=== PATIENT | female | born 1950 | race Caucasian/White ===

== ENCOUNTER 2018-02-08 01:59 | Emergency (ER) | payer MEDICARE, BC ==
[~2018-02-08] VITALS: Ht 165.1 cm; Wt 86.2 kg
[~2018-02-08 01:59] MED LIST: DICL100G16 TP; ESCI10TA PO; ESZO3TAB27 PO; LANS15CA13 PO; PRED20TA PO; PRED5SOL PO; THYR60TA2 PO; THYR90TA PO
--- NOTE | 2018-02-08 02:19 | NUR ---
MD WALKER AT BEDSIDE FOR MSE
--- NOTE | 2018-02-08 02:45 | NUR ---
Patient discharged to home in stable conditon. Written and verbal after care instructions given. Patient verbalizes understanding of instructions. Patient able to ambulate unassisted with a steady gait. Patient left with all personal belongings.
[2018-02-08 02:49] VITALS: BP 142/88
== END 2018-02-08 02:45 | disposition home or self-care (01) ==
LOC: ER 02:10
DX: J32.9 Chronic sinusitis, unspecified (principal); M54.2 Cervicalgia; M54.6 Pain in thoracic spine; K21.9 Gastro-esophageal reflux disease without esophagitis; Z88.0 Allergy status to penicillin; Z88.2 Allergy status to sulfonamides
CPT/HCPCS: 99281; A4663